=== PATIENT | female | born 1990 | race Caucasian/White ===

== ENCOUNTER 2018-01-06 22:45 | Emergency (ER) | payer BC, OTHER ==
--- NOTE | 2018-01-06 23:28 | RAD ---
2 VIEW CHEST: Date: 01/06/18 HISTORY: Dyspnea. FINDINGS: No infiltrate seen. Heart and mediastinum unremarkable. IMPRESSION: Unremarkable chest. POS: [id number]
== END 2018-01-07 02:59 | disposition home or self-care (01) ==
LOC: ERS 22:45
DX: R06.02 Shortness of breath (principal); F41.9 Anxiety disorder, unspecified
CPT/HCPCS: 71046; 93005